=== PATIENT | female | born 1935 | race Caucasian/White ===

== ENCOUNTER 2019-02-10 15:55 | Emergency (ER) | payer OTHER ==
[2019-02-10] MEDS ORDERED: NS 1,000 ML IV ONE (16:11)
--- NOTE | 2019-02-10 16:39 | EDPHY ---
HPI/HX/ROS/PE/MDM Narrative: CHIEF COMPLAINT: Palpitations, lightheadedness HPI: This patient is an 83-year-old female with past medical history including mitral valve prolapse, hypertension, hyperlipidemia, and hypothyroidism. She complains of recurrent episodes of heart palpitations with associated lightheadedness and nausea ongoing for the past two weeks. These episodes have become more frequent and of longer duration over the past several days, which provokes her ED visit today. She denies any specific chest pain or pressure, and describes her palpations as a "fluttering" sensation with associated "queasiness". She denies any known history of cardiac arrhythmias. She is not anticoagulated, but does take daily ASA 81mg. She denies any fever, difficulty breathing, vomiting, diarrhea, or other associated symptoms. REVIEW OF SYSTEMS: A comprehensive 10 system review of systems is otherwise negative aside from elements mentioned in the history of present illness and medical decision making. PMH: Prolapsed mitral valve. Hyperlipidemia (simvastatin). Hypertension ( Metoprolol). Hypothyroidism (Levothyroxine). Takes daily ASA 81mg. SOCIAL HISTORY: Retired. Significant other at bedside. Lives in [place]. PHYSICAL EXAM: General:Patient is alert, in no acute distress. ENT:Eyes are normal to inspection. ENT inspection normal. Neck: Normal inspection. Full range of motion. Respiratory:No respiratory distress. Breath sounds normal bilaterally. Cardiovascular: Regular rate and rhythm. Strong peripheral pulses. Normal cap refill. Abdomen:The abdomen is nontender to palpation. There are no peritoneal signs. There are normal bowel sounds. Back: Normal to inspection. No tenderness to palpation. Skin: Normal color. No rash. Warm and dry. Extremities: Normal appearance. Full range of motion. Neuro: Oriented x3. Normal motor function. Normal sensory function. ED Course: 83 y/o female with history of mitral valve prolapse, hypertension, hyperlipidemia presets with two week history of increasingly frequent episodes of heart palpitations with associated lightheadedness and queasiness. Plan for EKG, labs including CBC, chemistries, POC troponin. TSH. EKG was ordered and interpreted by myself. Please see [facility] system for official reading. Sinus rhythm with sinus pause. Sinus pause noted intermittently on the patient's color television console monitor here in the ED as well. Reassessed patient. She states she has not had a sensation of palpitations since her arrival here in the ED. Laboratory studies are largely unremarkable. Troponin negative. TSH within normal limits. 17:30 Reassessed. Discussed laboratory studies. I offered admission for further evaluation, but the patient declines. She understands that we cannot rule out life-threatening arrhythmias in the ED at this time. On further questioning, she admits history of a slow, irregular heartbeat in the past. She has still not felt the sensation of palpations during this ED visit. Plan to road test. If she continues to feel well, plan to discharge home in good condition. Referral to cardiology provided. Follow up and return precautions discussed. The patient is comfortable with this plan. - Data Points Laboratory Results: Laboratory Results 02/10/19 16:20 02/10/19 16:20 02/10/19 02/10/19 02/10/19 16:22 16:20 16:20 WBC 7.78 10^3/uL 10^3/uL (3.80-9.50) RBC 4.92 10^6/uL 10^6/uL (4.18-5.33) Hgb 15.3 g/dL g/dL (12.6-16.3) Hct 47.0 % % (38.0-47.0) MCV 95.5 fL fL (81.5-99.8) MCH 31.1 pg pg (27.9-34.1) MCHC 32.6 g/dL g/dL (32.4-36.7) RDW 13.1 % % (11.5-15.2) Plt Count 172 10^3/uL 10^3/uL (150-400) MPV 11.3 fL fL (8.7-11.7) Neut % (Auto) 55.7 % % (39.3-74.2) Lymph % (Auto) 30.2 % % (15.0-45.0) Tate % (Auto) 8.9 % % (4.5-13.0) Eos % (Auto) 4.1 % % (0.6-7.6) Baso % (Auto) 1.0 % % (0.3-1.7) Nucleat RBC Rel Count 0.0 % % (0.0-0.2) Absolute Neuts (auto) 4.33 10^3/uL 10^3/uL (1.70-6.50) Absolute Lymphs (auto) 2.35 10^3/uL 10^3/uL (1.00-3.00) Absolute Monos (auto) 0.69 10^3/uL 10^3/uL (0.30-0.80) Absolute Eos (auto) 0.32 10^3/uL 10^3/uL (0.03-0.40) Absolute Basos (auto) 0.08 10^3/uL 10^3/uL (0.02-0.10) Absolute Nucleated RBC 0.00 10^3/uL 10^3/uL (0-0.01) Immature Gran % 0.1 % % (0.0-1.1) Immature Gran # 0.01 10^3/uL 10^3/uL (0.00-0.10) Sodium 140 mEq/L mEq/L (135-145) Potassium 3.8 mEq/L mEq/L (3.5-5.2) Chloride 108 mEq/L mEq/L (97-110) Carbon Dioxide 22 mEq/l mEq/l (22-31) Anion Gap 10 mEq/L mEq/L (6-14) BUN 34 mg/dL H mg/dL (7-23) Creatinine 1.2 mg/dL H mg/dL (0.6-1.0) Estimated GFR 43 Glucose 86 mg/dL mg/dL (70-100) Calcium 9.2 mg/dL mg/dL (8.5-10.4) POC Troponin I 0.01 ng/mL ng/mL (0.00-0.08) TSH 4.360 uIU/mL uIU/mL (0.465-4.680) Medications Given: Discontinued Medications Sodium Chloride (Ns) 1,000 mls @ 0 mls/hr IV EDNOW ONE; Wide Open PRN Reason: Protocol Stop: 02/10/19 16:12 Last Admin: 02/10/19 16:34 Dose: Not Given Point of Care Test Results: Chemistry 02/10/19 16:22 POC Troponin I 0.01 ng/mL ng/mL (0.00-0.08) General Time Seen by Provider: 02/10/19 16:09 Initial Vital Signs: Initial Vital Signs Temperature (C) 36.7 C 02/10/19 15:58 Heart Rate 73 05/18/19 15:58 Respiratory Rate 16 02/10/19 15:58 Blood Pressure 188/71 H 02/10/19 15:58 O2 Sat (%) 97 02/10/19 15:58 O2 Delivery Mode Room Air Allergies/Adverse Reactions: No Known Allergies Allergy (Unverified 02/10/19 15:57) Home Medications: Medication Instructions Recorded Aspirin EC 81 mg (*) 02/10/19 Metoprolol Succinate 02/10/19 Departure - Departure Disposition: Home, Routine, Self-Care Clinical Impression: Heart palpitations Condition: Good Instructions: Heart Palpitations (ED) Additional Instructions: Follow-up with your primary doctor within 2-3 days. Return to the Emergency Department for fever, chest pain, shortness of breath, increasing discomfort, fainting, or other worsening of condition. Follow up with a etl consultant for further testing, as soon as possible, within one week. As we discussed, it is impossible to fully rule out cardiac arrhythmia as the cause of your palpations in the emergency department. We would be happy to reevaluate you and observe you in the hospital at any time. Referrals: Daria Fowler PA [Physician [facility]] - As per Instructions Report Scribed for: Khang Ortiz Report Scribed by: Aleta Rubio Date of Report: 02/10/19 Time of Report: 16:39 Physician Review and Approval Statement: Portions of this note were transcribed by an ED scribe. I personally performed the history, physical exam, and medical decision making; and confirm the accuracy of the information in the transcribed note.
[2019-02-10 16:40] LABS: PLATELET COUNT 172 10^3/uL (150-400)
[2019-02-10 18:18] VITALS: BP 187/81
--- NOTE | 2019-02-10 20:02 | CPEKG ---
Test Reason : OPEN Blood Pressure : / mmHG Vent. Rate : 067 BPM Atrial Rate : 068 BPM P-R Int : 179 ms QRS Dur : 096 ms QT Int : 411 ms P-R-T Axes : 073 067 042 degrees QTc Int : 434 ms Sinus rhythm Sinus pause Confirmed by Khang Ortiz ([id number]) on 02/10/2019 8:01:43 PM Referred By: Khang Ortiz Confirmed By:Khang Ortiz
== END 2019-02-10 18:18 | disposition home or self-care (01) ==
DX: R00.2 Palpitations (principal); I10 Essential (primary) hypertension; E78.5 Hyperlipidemia, unspecified; I34.1 Nonrheumatic mitral (valve) prolapse; E03.9 Hypothyroidism, unspecified
CPT/HCPCS: 84484-ER